=== PATIENT | female | born 1955 | race African-American/Black ===

== ENCOUNTER 2022-02-23 16:43 | Inpatient (IN) | payer OTHER ==
[2022-02-23 17:36] VITALS: BMI 34.0
[2022-02-23] MEDS ORDERED: MAG HYDROX/AL HYDROX/SIMETH 30 ML UNIT-DOSE CUP PO PRN (18:50)
[2022-02-23] MEDS ORDERED: DICYCLOMINE HCL 10 MG CAPSULE PO PRN (18:50)
[2022-02-23] MEDS ORDERED: IBUPROFEN 400 MG TABLET (FP) PO PRN (18:50)
[2022-02-23] MEDS ORDERED: ACETAMINOPHEN 325 MG TABLET (FP) PO PRN ×2 (18:50)
[2022-02-23] MEDS ORDERED: hydrOXYzine PAMOATE 25 MG CAPSULE (FP) PO PRN (18:50)
[2022-02-23] MEDS ORDERED: NALOXONE HCL (KLOXXADO) 8 MG SPRAY NS PRN (18:50)
[2022-02-23] MEDS ORDERED: IBUPROFEN 600 MG TABLET (FP) PO PRN (18:50)
[2022-02-23] MEDS ORDERED: METHOCARBAMOL 500 MG TABLET PO PRN (18:50)
[2022-02-23] MEDS ORDERED: MAGNESIUM HYDROX 2400MG/30ML ORAL SUSPENSION 30 ML CUP PO PRN (18:50)
[2022-02-23] MEDS ORDERED: BENZOCAINE/MENTHOL (CHLORASEPTIC ) LOZENGE MM PRN (18:50)
[2022-02-23] MEDS ORDERED: BISMUTH SUBSALICYLATE 524 MG/30 ML PO PRN (18:50)
[2022-02-23] MEDS ORDERED: NICOTINE 10 MG CARTRIDGE (INHALER) IH PRN (18:50)
[2022-02-23] MEDS ORDERED: ONDANSETRON *ODT* 4 MG TABLET SL PRN (18:50)
[2022-02-23] MEDS ORDERED: POLYETHYLENE GLYCOL (HEALTHYLAX) 3350 17 GM PACKET PO PRN (18:50)
[2022-02-23] MEDS ORDERED: LOPERAMIDE HCL 2 MG CAPSULE PO PRN (18:50)
[2022-02-23] MEDS ORDERED: LISINOPRIL 20 MG TABLET PO ONE (18:53)
[2022-02-23] MEDS ORDERED: LISINOPRIL 10 MG TABLET ONE (19:37)
[2022-02-23] MEDS ORDERED: MELATONIN 5 MG TABLETS PO SCH (22:00)
[2022-02-23] MEDS: THIAMINE HCL 100 MG TABLET (FP) PO SCH (22:39)
[2022-02-24] MEDS ORDERED: MELATONIN 5 MG TABLETS PO PRN (09:09)
[2022-02-24 09:51] LABS: BLOOD UREA NITROGEN 13.2 mg/dL (7-18)
[2022-02-24 09:52] LABS: ALBUMIN 3.3 g/dl (3.4-5.0); CALCIUM 9.6 mg/dL (8.5-10.1)
[2022-02-24 09:53] LABS: HEMATOCRIT 40.7 % (32.4-45.2); HEMOGLOBIN 13.6 GM/dL (10.7-15.3); MCH 26.7 pg (25.7-33.7); MCHC 33.3 g/dl (32.0-36.0); MEAN CELL VOLUME 80.3 fl (80-96); MEAN PLT VOLUME 8.9 fl (7.5-11.1); PLATELET COUNT 380 10^3/uL (134-434); RBC 5.07 M/mm3 (3.60-5.2); RDW 15.3 % (11.6-15.6); WHITE BLOOD COUNT 7.4 K/mm3 (4.0-10.0)
[2022-02-24 09:56] LABS: BILIRUBIN,TOTAL 0.4 mg/dL (0.2-1); CREATININE 0.8 mg/dL (0.55-1.3); TOT PROT 6.3 g/dl (6.4-8.2)
[2022-02-24] MEDS: PRENATAL VITAMINS W/ FOLIC ACID TABLET (FP) PO SCH (10:37)
[2022-02-24] MEDS: HYDROCHLOROTHIAZIDE 25 MG TABLET (FP) PO SCH (14:11)
[2022-02-24] MEDS: metFORMIN HCL 500 MG TABLET (FP) PO SCH (17:00)
[2022-02-24 17:29] VITALS: RESP 18
[2022-02-24] MEDS: THIAMINE HCL 100 MG TABLET (FP) PO SCH (22:29)
[2022-02-25] MEDS: metFORMIN HCL 500 MG TABLET (FP) PO SCH (06:36)
[2022-02-25] MEDS ORDERED: LISINOPRIL 20 MG TABLET PO SCH (10:00)
[2022-02-25] MEDS: PRENATAL VITAMINS W/ FOLIC ACID TABLET (FP) PO SCH (10:26)
[2022-02-25] MEDS: HYDROCHLOROTHIAZIDE 25 MG TABLET (FP) PO SCH (10:26)
[2022-02-25 13:18] VITALS: BP 140/83; PULSE 91; TEMP 97.5
== END 2022-02-25 13:14 | disposition home or self-care (01) | DRG 897 ==
LOC: YASAS 16:43 → Y3N 19:13
PROVIDERS: ADMIT Allergy & Immunology; ATTEND Surgery
PROC: HZ2ZZZZ Detoxification Services for Substance Abuse Treatment (ICD-10-PCS; principal; 2022-02-23)
DX: F10.230 Alcohol dependence with withdrawal, uncomplicated (principal); F14.20 Cocaine dependence, uncomplicated; F17.210 Nicotine dependence, cigarettes, uncomplicated; F41.9 Anxiety disorder, unspecified; F32.A Depression, unspecified; I10 Essential (primary) hypertension; E11.9 Type 2 diabetes mellitus without complications; Z79.84 Long term (current) use of oral hypoglycemic drugs; M54.50 Low back pain, unspecified; G89.29 Other chronic pain; Z88.1 Allergy status to other antibiotic agents
CPT/HCPCS: 36415; 80053; 82962; 85027; 86780; 87811; C9803-CS; U0003; U0005